=== PATIENT | female | born 1985 | race Caucasian/White ===

== ENCOUNTER → 2019-12-04 12:00 | Outpatient (CLI) | payer OTHER, SELFPAY ==
[2019-12-04 15:37] LABS: Hematocrit 38.9 % (37-47); Hemoglobin 12.9 g/dL (12.0-15.0); Mean Corp Hgb Conc 33.2 g/dL (32-36); Mean Corpuscular Hgb 31.2 pg (27.0-32.0); Mean Platelet Vol. 10.8 fl (6.2-12.0); Platelet Count 286 K/mm3 (150-450); RBC Distribution Width CV 13.1 % (11.6-14.6); RBC Distribution Width SD 44.7 fl (35.1-43.9); Red Blood Count 4.14 M/mm3 (4.2-5.4); White Blood Count 6.9 K/mm3 (4.4-11.0)
[2019-12-04 16:04] LABS: Vitamin D,25 Hydroxy 27.3 ng/mL
[2019-12-04 16:16] LABS: ALB/GLOB Ratio 1.1 RATIO (0.9-2.4); AST(SGOT) 25 U/L (15-37); Alanine Aminotransfer ALT/SGPT 28 U/L (13-56); Alkaline Phosphatase 75 U/L (45-117); Anion Gap 8 (5-15); BUN 16 mg/dL (7-18); BUN/Creat Ratio 23.1 RATIO (10-20); Calcium,Total 8.7 mg/dL (8.5-10.1); Chloride 101 mmol/L (98-107); Cholesterol 274 mg/dL (200); Creatinine, Serum 0.69 mg/dL (0.55-1.02); EST Glomerular Filtration Rate 102 mL/min (>60); Est Glom Filt Rate - Afr Amer 123 mL/min (>60); Globulin 3.7 g/dL (2.2-4.2); Glucose 91 mg/dL (74-106); High Density Lipoprotein 99 mg/dL; Potassium 3.6 mmol/L (3.5-5.1); Protein, Total 7.7 g/dL (6.4-8.2); Sodium Level 135 mmol/L (136-145); Thyroid Stim Hormone (TSH) 1.12 uIU/mL (0.358-3.74); Triglycerides 61 mg/dL; Very Low Density Lipoprotein 12 mg/dL (5-40)
== END ==
PROVIDERS: Visit Provider Family Medicine
DX: Z00.00 Encounter for general adult medical examination without abnormal findings (principal); R53.83 Other fatigue; E55.9 Vitamin D deficiency, unspecified; R51 Headache; Z82.49 Family history of ischemic heart disease and other diseases of the circulatory system
CPT/HCPCS: 36415; 80053; 80061; 82306; 84443; 85027

== ENCOUNTER → 2020-05-26 08:04 | Outpatient (CLI) | payer OTHER, SELFPAY ==
[2020-05-26 10:18] LABS: ALB/GLOB Ratio 1.1 RATIO (0.9-2.4); AST(SGOT) 19 U/L (15-37); Alanine Aminotransfer ALT/SGPT 24 U/L (13-56); Albumin, Serum 3.9 g/dL (3.2-5.0); Alkaline Phosphatase 67 U/L (45-117); Anion Gap 6 (5-15); BUN 11 mg/dL (7-18); Calcium,Total 8.7 mg/dL (8.5-10.1); Chloride 102 mmol/L (98-107); Cholesterol 228 mg/dL (200); Creatinine, Serum 0.73 mg/dL (0.55-1.02); EST Glomerular Filtration Rate 95 mL/min (>60); Est Glom Filt Rate - Afr Amer 115 mL/min (>60); Globulin 3.4 g/dL (2.2-4.2); Glucose 91 mg/dL (74-106); High Density Lipoprotein 81 mg/dL; Potassium 3.6 mmol/L (3.5-5.1); Protein, Total 7.3 g/dL (6.4-8.2); Sodium Level 135 mmol/L (136-145); Triglycerides 120 mg/dL; Very Low Density Lipoprotein 24 mg/dL (5-40)
== END ==
PROVIDERS: PCP Family Medicine; Referring Provider Family Medicine
DX: E78.5 Hyperlipidemia, unspecified (principal); E55.9 Vitamin D deficiency, unspecified
CPT/HCPCS: 36415; 80053; 80061; 82306

== ENCOUNTER → 2020-12-05 08:06 | Outpatient (CLI) | payer OTHER, SELFPAY ==
[2020-12-05 10:32] LABS: ALB/GLOB Ratio 1.1 RATIO (0.9-2.4); AST(SGOT) 22 U/L (15-37); Alanine Aminotransfer ALT/SGPT 28 U/L (13-56); Albumin, Serum 3.9 g/dL (3.2-5.0); Alkaline Phosphatase 75 U/L (45-117); Anion Gap 7 (5-15); BUN 13 mg/dL (7-18); BUN/Creat Ratio 16.1 RATIO (10-20); Calcium,Total 8.6 mg/dL (8.5-10.1); Chloride 104 mmol/L (98-107); Cholesterol 239 mg/dL (200); Creatinine, Serum 0.81 mg/dL (0.55-1.02); EST Glomerular Filtration Rate 85 mL/min (>60); Est Glom Filt Rate - Afr Amer 102 mL/min (>60); Globulin 3.6 g/dL (2.2-4.2); Glucose 100 mg/dL (74-106); High Density Lipoprotein 86 mg/dL; Potassium 4.4 mmol/L (3.5-5.1); Protein, Total 7.5 g/dL (6.4-8.2); Sodium Level 137 mmol/L (136-145); Triglycerides 79 mg/dL; Very Low Density Lipoprotein 16 mg/dL (5-40)
== END ==
PROVIDERS: PCP Family Medicine; Visit Provider Family Medicine
DX: Z00.00 Encounter for general adult medical examination without abnormal findings (principal)
CPT/HCPCS: 36415; 80053; 80061

== ENCOUNTER → 2024-06-29 | Outpatient (CLI) | payer BC, SELFPAY ==
--- NOTE | 2024-06-29 13:38 | BI_ITS ---
MAMMOGRAPHY - BILATERAL SCREENING REASON FOR EXAM: Female, 39 years old. Routine annual screening examination. PERTINENT HISTORY: Non-contributory. TECHNIQUE: Digital bilateral breast jesus (3D mammographic acquisition) in the CC and MLO projections. 2-D mediolateral oblique (MLO) and craniocaudad (CC) views of both breasts were obtained. CAD: Full Field Digital Mammography with Computer Added Detection was performed. COMPARISON: None. Baseline examination. FINDINGS: Breast Composition: The breasts are extremely dense, which lowers the sensitivity of mammography. There are no dominant masses or suspicious calcifications. Fat-containing bilateral axillary lymph nodes. No other significant abnormalities are identified. BI/SCRN MAMM (CAD)W/JESUS BILAT IMPRESSION: Negative screening mammogram. Yearly followup mammogram recommended. (A) ASSESSMENT CATEGORY: BIRADS Category 2: Benign. A letter regarding these results will be sent to the patient by the facility within 30 days. Approximately 10% of breast cancers are not detected by mammography. A normal mammogram should not delay biopsy of a clinically suspicious abnormality. [id number] Electronically Signed: Carlos Alicia MD at 14:59 EST ,
--- NOTE | 2024-06-29 13:39 | US_ITS ---
INDICATION: ABNORMAL BLEEDING EXAMINATION: Ultrasound US Transvaginal Non-OB TECHNIQUE: Transvaginal (for optimal evaluation of the adnexa) pelvic ultrasound was performed. Grayscale, spectral waveform, and color flow Doppler evaluation of the adnexa. COMPARISON: No relevant prior comparison study available FINDINGS: UTERUS: Anteverted. The uterus measures 7.7 x 3.3 x 4.5 cm. There is no uterine mass. The endometrial stripe measures 6.1 mm in AP diameter which is within normal limits. There is nabothian cysts present. RIGHT OVARY: 2.5 x 3.0 x 1.7 cm. Non-enlarged, normal echogenicity. There is normal arterial inflow and venous outflow present in the right ovary. LEFT OVARY: 2.0 x 2.2 x 1.2 cm. Non-enlarged, normal echogenicity. There is normal arterial inflow and venous outflow present in the left ovary. FREE FLUID: There is trace free fluid which is likely physiologic. US/Transvaginal Non- IMPRESSION: Within normal limits pelvic ultrasound. Electronically Signed: Maisha Meyers MD at 11:02 EST ,
== END | disposition home or self-care (01) ==
PROVIDERS: PCP Family Medicine
DX: Z12.31 Encounter for screening mammogram for malignant neoplasm of breast (principal); N93.9 Abnormal uterine and vaginal bleeding, unspecified; N92.0 Excessive and frequent menstruation with regular cycle
CPT/HCPCS: 76830; 77063; 77067

== ENCOUNTER → 2025-05-29 | Outpatient (CLI) | payer BC, SELFPAY ==
--- NOTE | 2025-05-29 07:21 | CT_ITS ---
PROCEDURE: LIMITED CHEST CT CARDIAC ONLY 05/29/2025 REASON FOR EXAM: SCREENING FOR CARDIOVASCULAR SERVICES TECHNIQUE: Procedure Code: [id number] Modality: CT Procedure: LIMITED CHEST CT CARDIAC ONLY Coronal and Sagittal reconstruction series were provided. One or more dose reduction techniques were used (e.g., Automated exposure control, adjustment of the mA and/or kV according to patient size, use of iterative reconstruction technique). FINDINGS: Coronary calcium scoring: Left main: 0 Left anterior descendin Left circumflex: 0 Right coronary artery: 0 TOTAL: 0 The visualized lung green are clear. Calcified mediastinal and right hilar lymph nodes are noted. No acute osseous abnormality. CT/Limited Chest CT Cardiac Only IMPRESSION: Total calcium score: 0. This is below the 75th percentile for women between th e ages of 40 and 44. Reading Location: [id number]
--- OUTSIDE RECORDS SUMMARY | 2025-05-29 07:22 | XMS RPT_ITS | CCD ---
Author Organization [facility] Care Team Providers Care Surveyor Hydrographic Name Role Phone Edward Brice Primary Care Unavailable CAMILA WEBB Referring Unavailable CAMILA WEBB Attending Unavailable Problems Problem Classification Problem Date Documented Da te Episodic/Chronic Other screening for suspected conditions (not mental disorders or infectious disease) (1 source) Encounter for screening mammogram for malignant neoplasm of breast; Translations: [Encounter for screening mammogram for malignant neoplasm of breast] Onset: 07-20-2024 Episodic Results Test Name Value Interpretation Reference Range Facil ity SCRN MAMM (CAD)W/JESUS BILATo n 06-29-2024 SCRN MAMM (CAD)W/JESUS BILAT [facility] Imaging Services [address] [place], [place] [id number] SCRN MAMM (CAD)W/JESUS BILAT MR#: [id number] Acct: [id number] Name: KUMAR WATSON Rep #: [id number] : 1985 F 39 From: Carlos krishnamurthy MD PCP: Dr. Edward Brice MD Status: [facility] Study: SCRN MAMM (CAD)W/JESUS BILAT Date of Exam: 06/07 09/28 Exam# [id number] Ordering Dr: ELVIE LORA [id number] MAMMOGRAPHY - BILATERAL SCREENING REASON FOR EXAM: Female, 39 years old. Routine annual screening examination. PERTINENT HISTORY: Non-contributory. TECHNIQUE: Digital bilateral breast jesus (3D mammographic acquisition) in the CC and MLO projections. 2-D mediolateral oblique (MLO) and craniocaudad (CC) views of both breasts were obtained. CAD: Full Field Digital Mammography with Computer Added Detection was performed. COMPARISON: None. Baseline examination. FINDINGS: Breast Composition: The breasts are extremely dense, which lowers the sensitivity of mammography. There are no dominant masses or suspicious calcifications. Fat-containing bilateral axillary lymph nodes. No other significant abnormalities are identified. BI/SCRN MAMM (CAD)W/JESUS BILAT IMPRESSION: Negative screening mammogram. Yearly followup mammogram recommended. (A) ASSESSMENT CATEGORY: BIRADS Category 2: Benign. A letter regarding these results will be sent to the patient by the facility within 30 days. Approximately 10% of breast cancers are not detected by mammography. A normal mammogram should not delay biopsy of a clinically suspicious abnormality. [id number] Electronically Signed: Carlos Alicia MD at 14:59 EST Reading Location ID and State: [address] [place] [address] , Service support , CC: Dr. Edward Brice MD; ELVIE LORA Top Stitcher: Signed Normal [facility] Transvaginal Non-on 06-29-2024 Transvaginnh Non- [facility] Imaging Services [address] [place] [id number] Transvaginal Non- MR#: [id number] Acct: [id number] Name: KUMAR WATSON Rep #: [id number] : 1985 F 39 From: Maisha Meyers MD PCP: Dr. Edward Brice MD Status: [facility] Study: Transvaginal Non- Date of Exam: Exam# [id number] Ordering Dr: ELVIE LORA [id number] INDICATION: ABNORMAL BLEEDING EXAMINATION: Ultrasound US Transvaginal Non-OB TECHNIQUE: Transvaginal (for optimal evaluation of the adnexa) pelvic ultrasound was performed. Grayscale, spectral waveform, and color flow Doppler evaluation of the adnexa. COMPARISON: No relevant prior comparison study available ____ FINDINGS: UTERUS: Anteverted. The uterus measures 7.7 x 3.3 x 4.5 cm. There is no uterine mass. The endometrial stripe measures 6.1 mm in AP diameter which is within normal limits. There is nabothian cysts present. RIGHT OVARY: 2.5 x 3.0 x 1.7 cm. Non-enlarged, normal echogenicity. There is normal arterial inflow and venous outflow present in the right ovary. LEFT OVARY: 2.0 x 2.2 x 1.2 cm. Non-enlarged, normal echogenicity. There is normal arterial inflow and venous outflow present in the left ovary. FREE FLUID: There is trace free fluid which is likely physiologic. US/Transvaginal Non- IMPRESSION: Within normal limits pelvic ultrasound. Electronically Signed: Maisha Meyers MD at 11:02 EST , CC: Dr. Edward Brice MD; ELVIE LORA Top Stitcher: Signed Normal [facility] Encounters Encounter Date Encounter Type Care Provider Facility Start: 06-29-2024 End: 06-29-2024 ambulatory Edward Brice Facility:[facility] Payers Date Payer Category Payer Self-pay 2024 Unknown [id number] 2024 Unknown [id number] Unknown [id number] Clinical Note 01-07-2021 Note Date & Type Note Facility 01-07-2021 Note Patient Outreach (NE TNAV) KUMAR WATSON ([id number]) 1985 F Date Time Provider Department 01/07/21 HOLLY JOHN TIFFANIE During your visit today, we recorded the following information about you: John Holly 01/07/2021 9:26 AM Signed POPULATION HEALTH NAVIGATION OUTREACH Action/FYI Unable to reach patient, left a detailed VM and sent [employer] message. Contact made with patient or family member? no Pt identified by name and :no Outreach Outcome/Action Unable to reach patient, left a detailed VM and sent [employer] message. Reason for Outreach Care gap - annual visit Payer: [facility]or: [facility] / Plan: [facility] / Product Type: Indemnity / Care Gap Reviewed:: Woman health - pap Reminder: Reminder note to check Health Maintenance for items below Health Maintenance items due: DEPRESSION SCREENING Never done COVID-19 VACCINE(1) Never done HEPATITIS C SCREENING Never done HIV SCREENING Never done DTAP,TDAP,TD(1 - Tdap) Never done HPV TESTING due on 12/04/2018 PAP TESTING due on 05/28/2020 Advanced Directives Completed: Have you ever planned for future healthcare decisions with a power of trust and estates attorney, living will, or advance directives? Referrals: Message Sent to Practice: Navigation Signature: John Barrera January 07, 2021 9:25 AM Allergies As of Date: 01/07/2021 Noted Allergy Reaction SEASONAL ALLERGIES 01/29/2014 14 - Other: See Comments Comments: Nasal congestion Date Reviewed: 08/10/2017 Reviewed by: Giovana Lopez - Fully Assessed Reason for Visit: Population Health Navigation Outreach [3910] Cmt: care gap - annual visit /woman health Problem List As Of Date 01/07/2021 Noted Resolved Headache [R51] 05/18/2007 10/01/2009 Tension headache [G44.209] 06/19/2007 11/22/2013 Diarrhea [R19.7] 10/01/2009 11/22/2013 Skin cancer, basal cell [C44.91] 09/30/2010 Encounter Status:Closed by JOHN BARRERA on 01/07/21 [facility] Progress note 01-07-2021 Note Date & Type Note Facility 01-07-2021 Note HNO ID: [id number] Author: John Barrera Service: ? Author Type: ? Type: Progress Notes Filed: 01/07/2021 9:26 AM Note Text: POPULATION HEALTH NAVIGATION OUTREACH Action/FYI Unable to reach patient, left a detailed VM and sent my-chart message. Contact made with patient or family member? no Pt identified by name and :no Outreach Outcome/Action Unable to reach patient, left a detailed VM and sent my-chart message. Reason for Outreach Care gap - annual visit Payer: [facility] / [facility] / Product Type: Indemnity / Care Gap Reviewed:: [email or web address] - pap Reminder: Reminder note to check Health Maintenance for items below Health Maintenance items due: DEPRESSION SCREENING Never done COVID-19 VACCINE(1) Never done HEPATITIS C SCREENING Never done HIV SCREENING Never done DTAP,TDAP,TD(1 - Tdap) Never done HPV TESTING due on 12/04/2018 PAP TESTING due on 05/28/2020 Advanced Directives Completed: Have you ever planned for future healthcare decisions with a power of trust and estates attorney, living will, or advance directives? Referrals: Message Sent to Practice: Navigation Signature: John Barrera January 07, 2021 9:25 AM [facility] Summary Purpose Family History No Family History Records FoundNo Family History Records Found Advance Directives No Advanced Directives Records FoundNo Advanced Directives Records Found Additional Source Comments INFORMATION SOURCE (unrecogn ized section and content) DATE CREATED AUTHOR 06/21/2021 [facility] DATE CREATED AUTHOR 'S MACKENZIE TOVAR 07/22/2024 [facility] FOR RECORDS PERTAINING TO PATIENTS WHO ARE OR HAVE BEEN ENROLLED IN A CHEMICAL DEPENDENCY/SUBSTANCEABUSE PROGRAM, SOME INFORMATION MAY BE OMITTED. This clinical summary was aggregated from multiple sources. Caution should be exercised in using it in the provision of clinical care. This summary normalizes information from multiple sources, and as a consequence, information in this document may materially change the coding, format and clinical context of patient data. In addition, data may be omitted in some cases. CLINICAL DECISIONS SHOULD BE BASED ON THE PRIMARY CLINICAL RECORDS. [facility] [employer] [facility]. provides no warranty or guarantee of the accuracy or completeness of information in this document.
--- NOTE | 2025-06-09 17:35 | CA.SCORE ---
Calcium Scoring Date of Study:: 05/29/25 Indications Indications: Screening Coronary Calcium Scoring: High-resolution Computed Tomographic imaging of the chest was performed on [ 05/29/25], with particular attention paid to the coronary arteries. Images from the examination were analyzed for the presence and extent of coronary artery calcification , using coronary calcium quantification software. The patient tolerated the procedure well and there were no complications. The results of the coronary calcification analysis are provided below. Findings Coronary Artery Left Main (LM): 0 Left Anterior Descending (LAD): 0 Left Circumflex (LCX): 0 Right Coronary Artery (RCA): 0 Total Agatston Score: 0 Percentile Rankin Calcium Scoring Interpretation: Different methods to categorize the overall amount of coronary plaque. Overall amount CAC SIS Visual of coronary plaque P1 Mild -100 <2 1-2 vessels with mild amount of plaque P2 Moderate 101-300 3-4 1-2 vessels with moderate amount, 3 vessels with mild amount of plaque P3 Severe 301-999 5-7 3 vessels with moderate amount, 1 vessel with severe amount of plaque P4 Extensive >1000 >8 2-3 vessels with severe amount of plaque Conclusion: No atherosclerotic plaquing noted
== END | disposition home or self-care (01) ==
LOC: CT 07:20
PROVIDERS: PCP Family Medicine
DX: Z13.6 Encounter for screening for cardiovascular disorders (principal); I10 Essential (primary) hypertension; E78.2 Mixed hyperlipidemia
CPT/HCPCS: 75571; 76380